=== PATIENT | male | born 1995 | race Caucasian/White ===

== ENCOUNTER → 2024-12-17 14:34 | Outpatient (CLI) | payer OTHER, SELFPAY ==
--- NOTE | 2024-12-17 14:35 | DI.CT.S_ITS ---
PROCEDURE: CT CHEST WO CON
== END ==
LOC: CT 14:35
PROVIDERS: PCP Registered Nurse; Referring Provider Internal Medicine Critical Care Medicine; Visit Provider Internal Medicine Critical Care Medicine
DX: E04.1 Nontoxic single thyroid nodule (principal); R05.3 Chronic cough
CPT/HCPCS: 71250

== ENCOUNTER 2025-01-16 17:02 | Emergency (ER) | payer OTHER, SELFPAY ==
[2025-01-16 17:07] VITALS: BP 131/63; PULSE 67; RESP 18; TEMP 36.5; O2SAT 99; BMI 23.1
[2025-01-16 18:34] VITALS: BP 127/67; PULSE 87; RESP 16; O2SAT 100
--- NOTE | 2025-01-16 19:05 | ED.MALEGU ---
HPI - Male Genitourinary General Chief complaint: Urogenital-Male Stated complaint: kidney stone, abd px pain getting worse Time Seen by Provider: 01/16/25 17:14 Source: patient Mode of arrival: Ambulatory History of Present Illness HPI Narrative: 29-year-old male to female transgender with a history of gender affirmation surgery presents with a need for a dose of Flomax and asking for some more pain support due to a kidney stone that was diagnosed today over a [place] where he was diagnosed with a 3 mm stone in the left ureter distal area with moderate hydronephrosis. Patient is still having a little bit of left CVA tenderness but otherwise asymptomatic Related Data Home Medications ?Medication ?Instructions ?Recorded ?Confirmed bupropion HCl 150 mg 24 hr tablet, 150 mg PO QAM 11/22/24 01/13/25 extended release estradiol 2 mg tablet 3 mg PO BID 11/22/24 01/13/25 ibuprofen 600 mg tablet 600 mg PO Q6H PRN 11/22/24 01/13/25 omeprazole 20 mg capsule,delayed 20 mg PO DAILY 11/22/24 01/13/25 release Previous Rx's ?Medication ?Instructions ?Recorded fluticasone 250 mcg-salmeterol 50 1 inh inhalation BID #60 ea 12/02/24 mcg/dose blistr powdr for inhalation estradiol 0.01% (0.1 mg/gram) 0.5 g vaginal DAILY #42.5 grams 12/30/24 vaginal cream Allergies Allergy/AdvReac Type Severity Reaction Status Date / Time No Known Drug Allergies Allergy Verified 01/16/25 17:14 Review of Systems Review of Systems ROS Unobtainable: All systems reviewed & are unremarkable except as noted in HPI and below Patient History Medical History (Updated 01/16/25 @ 19:09 by Dakota Giles MD) Delayed wound healing Surgical History (Updated 12/31/24 @ 12:50 by Amberly Ha MD) Person who has undergone gender reassignment surgery Social History Smoking Status: Never smoker Smoking Status: Never smoker Exam Narrative Exam Narrative: General: Patient appears to be in no acute distress, acting appropriately Head: normocephalic, atraumatic, HEENT: Pupils equal round reactive, eyes tracking well, neck supple, no JVD Heart: regular rate and rhythm, no murmurs, rubs, or gallops heard Lungs: clear to auscultation, no adventitious sounds Abdomen: soft , nontender, mildly tender in the left CVA area and left suprapubic area., positive bowel sounds Neurological: no focal neurological signs, moving all extremities well, alert and oriented x3, Psych: good judgment ,good insight, mood is normal. Initial Vital Signs Initial Vital Signs: Vital Signs Temperature 97.7 F 01/16/25 17:07 Pulse Rate 67 01/16/25 17:07 Respiratory Rate 18 01/16/25 17:07 Blood Pressure 131/63 01/16/25 17:07 Pulse Oximetry 99 01/16/25 17:07 Oxygen Delivery Method Room Air 01/16/25 17:07 Course Orders Ordered: Discontinued Medications Oxycodone/Acetaminophen (Oxycodone/Apap 5/325 Prepack) 1 bottle MISC DIRECTED ONE Stop: 01/16/25 19:09 Last Admin: 01/16/25 19:14 Dose: 1 bottle Documented By: CLAUDIA Tamsulosin HCl (Tamsulosin 0.4 Mg Capsule) 0.4 mg PO NOW ONE Stop: 01/16/25 19:09 Last Admin: 01/16/25 19:14 Dose: 0.4 mg Documented By: Laurie Vital Signs Vital signs: Vital Signs - 8 hr 01/16/25 17:07 01/16/25 18:34 Temperature 97.7 F Pulse Rate 67 87 Respiratory Rate 18 16 Blood Pressure 131/63 127/67 Pulse Oximetry 99 100 Oxygen Delivery Method Room Air Room Air MDM - Male Genitourinary MDM Narrative Medical decision making narrative: 29-year-old male presenting with a 3 mm stone in the left distal ureter where he was diagnosed at a different ER at [facility] for some medication support. Patient will be given a dose of Flomax and a prepack of Percocet. Advised to hydrate well and follow up if symptoms worsen. Discharge Plan Departure Patient Disposition: Home Clinical Impression: Kidney stone on left side Instructions: DI for Kidney Stones Activity Restrictions/Additional Instructions: Continue to hydrate well and use meds as prescribed. Follow up sooner if symptoms worsen. Prescriptions: No Action fluticasone propion-salmeterol 250-50 mcg/dose blister with device 1 inh inhalation BID Qty: 60 5RF estradiol 0.01 % (0.1 mg/gram) cream 0.5 g vaginal DAILY Qty: 42.5 0RF omeprazole 20 mg capsule,delayed release(DR/EC) 20 mg PO DAILY estradiol 2 mg tablet 3 mg PO BID ibuprofen 600 mg tablet 600 mg PO Q6H PRN bupropion HCl 150 mg tablet extended release 24 hr 150 mg PO QAM Referrals: Adriana Means ARNP [Primary Care Provider, Family Practice] Stand Alone Forms: Patient Portal/API
[2025-01-16] MEDS: TAMSULOSIN 0.4 MG CAPSULE PO (19:14)
== END 2025-01-16 19:19 | disposition home or self-care (01) ==
PROVIDERS: Emergency Provider Family Medicine; PCP Registered Nurse
DX: N20.0 Calculus of kidney (principal); R10.32 Left lower quadrant pain
CPT/HCPCS: 99283

== ENCOUNTER → 2025-01-27 08:47 | Outpatient (CLI) | payer OTHER, SELFPAY | PROVIDERS: PCP Registered Nurse; Visit Provider Urology | DX: N20.0 Calculus of kidney (principal); R39.9 Unspecified symptoms and signs involving the genitourinary system | CPT/HCPCS: 87086 ==

== ENCOUNTER → 2025-01-28 06:29 | Outpatient (CLI) | payer OTHER, SELFPAY ==
--- NOTE | 2025-01-28 06:31 | DI.US.S_ITS ---
PROCEDURE: US THYROID INDICATIONS: Thyroid nodule on CT chest, please evaluate TECHNIQUE: Real-time scanning was performed of the thyroid gland, with image documentation. COMPARISON: [facility], CT, CT CHEST WO [place], 12/17/2024, 14:37. FINDINGS: Thyroid: Right lobe measures 5.9 x 1.8 x 1.8 cm. Left lobe measures 4.9 x 1.9 x 1.6 cm. Isthmus is 0.6 cm thick. Echotexture is heterogeneous. No discrete left-sided thyroid nodule is seen corresponding to CT finding. The right superior thyroid nodule is seen, with solid appearance, punctate and peripheral calcifications hypoechoic echotexture, and taller than wide appearance. TR 5. IMPRESSION: TR 5 right thyroid nodule, sampling recommended. No discrete nodule seen by ultrasound corresponding to the CT finding in the superior posterior left thyroid. Given patient's young age, attention on follow-up imaging during biopsy is recommended. ACR TI-RADS definitions and recommendations: TI-RADS 1 (benign): 0 points. FNA not needed. TI-RADS 2 (not suspicious): 2 points. FNA not needed. TI-RADS 3: 3 points. * FNA if 2.5 cm or larger, follow up if 1.5 cm or larger (at 1, 3, and 5 years). TI-RADS 4: 4-6 points. * FNA if 1.5 cm or larger, follow up if 1 cm or larger (at 1, 2, 3, and 5 years). TI-RADS 5: 7 points or more. * FNA if 1 cm or larger, follow up if 0.5 cm or larger (every year for 5 years). Dictated by: Carter Valdez M.D. on 01/29/2025 at 8:40 Approved by: Carter Valdez M.D. on 01/29/2025 at 8:44
== END ==
LOC: US 06:30
PROVIDERS: PCP Registered Nurse; Referring Provider Internal Medicine Critical Care Medicine; Visit Provider Internal Medicine Critical Care Medicine
DX: E04.1 Nontoxic single thyroid nodule (principal)
CPT/HCPCS: 76536